=== PATIENT | male | born 1955 | race American Indian/Alaskan Native ===

== ENCOUNTER 2019-05-03 06:30 | Day surgery (SDC) | payer MEDICARE ==
[2019-05-03] MEDS: SODIUM CHLORIDE 0.9% 500 ML 500 ML IV SCH ×2 (07:15→09:24)
[2019-05-03] MEDS ORDERED: ASPIRIN EC 325 MG TAB PO ONE (07:30)
[2019-05-03] MEDS ORDERED: HEPARIN/NS 5000 UNIT/500ML 1,000 ML IR ONE (08:31)
[2019-05-03] MEDS ORDERED: VERAPAMIL 5 MG/2 ML INJ ONE (08:32)
[2019-05-03] MEDS: MIDAZOLAM 2 MG/2 ML INJ ONE ×2 (09:22→09:27)
[2019-05-03] MEDS: LIDOCAINE (2%) 20 MG/1 ML VIAL 20 ML MDV INFILTRATI ONE ×2 (09:22→09:30)
[2019-05-03] MEDS: fentaNYL 100 MCG/2 ML INJ ONE ×2 (09:22→09:27)
[2019-05-03] MEDS: HEPARIN 10,000 UNITS/10 ML VIAL ONE ×3 (09:23→09:33)
[2019-05-03] MEDS: NITROGLYCERIN SYRINGE 3 ML ONE ×3 (09:24→09:33)
--- NOTE | 2019-05-03 09:54 | Cardiac Catherization Report ---
REFERRING PHYSICIAN: Adrianne Frost MD INDICATION FOR PROCEDURE: The patient is a pleasant 63-year-old gentleman with recurrent chest pain, multiple risk factors, abnormal treadmill stress test, referred for left heart catheterization. Risks, benefits, potential alternatives explained at length prior to obtaining informed consent. PROCEDURE IN DETAIL: The patient was brought to catheterization lab in a postabsorptive state, prepped and draped in sterile fashion. Erich's test in right hand was normal. A 2 mL of 2% lidocaine used to anesthetize the right wrist. A standard 6-Mohawk hydrophilic sheath used to cannulate the right radial artery via modified Seldinger technique. All exchanges performed over exchange a J-tip guidewire. JL3.5 catheter used to engage the left main. No dampening or ventricularization. Cineangiography performed in all projections. JR4 catheter, crossing the aortic valve under fluoroscopic guidance. Left ventriculography performed in 30 MARTINEZ and 30 OCCITAN projections via hand injections, catheter flushed. Manual pullback performed with continuous pressure monitoring. Catheter used right coronary. No dampening or ventricularization. Cineangiography performed in all projections. Due to recurrent chest pain, hypertension proceeded with root aortography with a pigtail catheter and a power injector in the OCCITAN projection. Next, catheter removed from the body of wire, sheath removed. Manual pressure used to achieve hemostasis. There were no immediate complications identified. I directly supervised the administration of moderate sedation with fentanyl and Versed from 9:26 a.m. to 9:50 a.m. DATA: Aortic pressure is 120/80, LV pressure is 120, LVP of 4 mmHg. Left ventriculography reveals normal systolic performance with estimated ejection fraction of 55-60%. No evidence of aortic stenosis. CORONARY ANATOMY: This is a right dominant system. Left main is without significant disease, trifurcates in left anterior descending and left circumflex and ramus intermedius, left main without significant disease. The left circumflex, moderate sized vessel, courses AV groove. No significant disease. Ramus intermedius, courses the medial aspect to lateral wall. No significant disease. LAD is a moderate sized vessel, courses anterior intergroove, wraps around the apex, no significant disease. Right coronary is a moderate sized vessel, courses the AV groove, distally bifurcates into posterior and posterolateral branches. No significant disease. Root aortography reveals normal contour, normal great vessel anatomy, no evidence of dissection or penetrating aortic ulcer or aortic insufficiency. CONCLUSIONS: 1. No angiographic evidence of significant epicardial coronary disease in this right dominant system. 2. Normal left ventricular systolic performance, estimated ejection fraction of 55-60%. 3. No evidence of aortic stenosis. 4. Normal LVEDP. 5. Normal root aortography without evidence of dissection, penetrating aortic ulcer, or aortic insufficiency. The patient is clinically stable. Standard radial care. Aggressive primary and secondary prevention measures discussed with Dr. Jeanette Frost. The patient will follow up with him. I discussed the results of procedure with the patient and family at length. All questions and concerns were addressed. JOB# [id number] MANINDER/SUKI
--- NOTE | 2019-05-03 12:47 | Short Stay Summary ---
Short Stay Documentation Date of service: 05/03/19 - History H&P: obtained from office - Allergies and Medications Current Medications: Allergies No Known Allergies Allergy (Unverified 04/26/15 16:13) Home Medications Medication Instructions Recorded Confirmed Last Taken Type Aspirin [Adult Aspirin] 81 mg PO DAILY 05/03/19 05/03/19 05/02/19 History amLODIPine [Norvasc] 5 mg PO DAILY 05/03/19 05/03/19 05/02/19 History hydroCHLOROthiazide [Hctz] 12.5 mg PO QDAY 05/03/19 05/03/19 05/02/19 History Active Medications Sodium Chloride (Nacl 0.9% 500 Ml) 500 mls @ 50 mls/hr IV DIRECT JONATHAN Stop: 05/03/19 16:59 Last Admin: 05/03/19 09:24 Dose: 50 mls/hr Documented by: - Brief post op/procedure progress note Date of procedure: 05/03/19 Pre-op diagnosis: abnormal stress test Post-op diagnosis: same Procedure: LHC - see dictated cath report Anesthesia: local Estimated blood loss: none Condition: stable - Disposition Condition at discharge: Good Disposition: [id number] TO HOME OR SELFCARE - Discharge Diagnoses (1) Normal coronary arteries Status: Chronic Short Stay Discharge Plan Activity: advance as tolerated Wound: open to air, keep clean and dry, per your surgeon's advice Follow up with: SAMUEL DOMINGUEZ MD [Primary Care Provider] - 7 Days BRIGETTE MARCOS MD [Staff Physician] - 7 Days Forms: CardCath PCI D/C Instructions
[2019-05-03 13:14] VITALS: BP 140/79
== END 2019-05-03 13:10 | disposition home or self-care (01) ==
LOC: CATHLABREC 06:30
PROVIDERS: ATTEND Internal Medicine
DX: R07.9 Chest pain, unspecified (principal); R93.89 Abnormal findings on diagnostic imaging of other specified body structures; I10 Essential (primary) hypertension; E78.00 Pure hypercholesterolemia, unspecified; Z79.82 Long term (current) use of aspirin; Z79.899 Other long term (current) drug therapy; Z98.890 Other specified postprocedural states
CPT/HCPCS: 93005; 93010; 93458; 93567; 99156; 99157; C1894; J1644; J2250; J3010; J7040; Q9967